=== PATIENT | female | born 1985 | race Two or more races ===

== ENCOUNTER → 2016-11-23 | Outpatient (CLI) | payer OTHER, MEDICAID | LOC: CIMAGING 15:08 | PROVIDERS: ATTEND Family Medicine | DX: R10.32 Left lower quadrant pain (principal); N83.01 Follicular cyst of right ovary; Z90.721 Acquired absence of ovaries, unilateral; D25.9 Leiomyoma of uterus, unspecified | CPT/HCPCS: 76856-PO ==

== ENCOUNTER → 2017-03-23 | Outpatient (CLI) | payer OTHER, MEDICAID | LOC: FIMAGING 08:53 | PROVIDERS: ATTEND Registered Nurse | DX: O10.011 Pre-existing essential hypertension complicating pregnancy, first trimester (principal); O34.11 Maternal care for benign tumor of corpus uteri, first trimester; O26.21 Pregnancy care for patient with recurrent pregnancy loss, first trimester; O99.211 Obesity complicating pregnancy, first trimester; E66.9 Obesity, unspecified; Z68.34 Body mass index [BMI] 34.0-34.9, adult; Z90.5 Acquired absence of kidney; Z3A.12 12 weeks gestation of pregnancy ==